=== PATIENT | female | born 1955 | race Caucasian/White ===

== ENCOUNTER 2019-03-07 05:14 | Emergency (ER) | payer MEDICARE, BC ==
[2019-03-07] MEDS: diphenhydrAMINE 25 MG Cap ONE (05:39)
[2019-03-07 05:44] VITALS: BP 142/66; PULSE 58
[2019-03-07] MEDS ORDERED: Ketorolac 60 MG/2 ML SDV ONE (05:46)
--- NOTE | 2019-03-07 05:54 | EDM.PDOC ---
ED HPI GENERAL MEDICAL PROBLEM - General Chief Complaint: General Stated Complaint: right knee pain Time Seen by Provider: 03/07/19 05:54 Source of Information: Reports: Patient History Limitations: Reports: No Limitations - History of Present Illness INITIAL COMMENTS - FREE TEXT/NARRATIVE: Gloria is a 63 year old female who presents to the ED via private vehicle with c/o right knee pain and swelling. She is 2 days status post right TKA. She reports she is nauseated, itching all over, and shaky. She reports she last took her oxycodone at 1 am. She reports she was doing well at the hospital and on the ride home her pain worsened. She reports swelling in both extremities. Reports she is struggling to lift her knee now. She feels like she is "swollen all over." Denies any chest pain or shortness of breath. 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, Other Medication(s) (oxycodone) Right Knee Pain Score (Numeric/FACES): 10 - Related Data Allergies Allergy/AdvReac Type Severity Reaction Status Date / Time budesonide [From Pulmicort] Allergy Cannot Verified 03/07/19 05:51 Remember diltiazem HCl [From Cardizem] Allergy Cannot Verified 03/07/19 05:51 Remember docetaxel [From Taxotere] Allergy Cannot Verified 03/07/19 05:51 Remember erythromycin base Allergy Cannot Verified 03/07/19 05:51 Remember fluticasone propionate Allergy Cannot Verified 03/07/19 05:51 [From Advair Diskus] Remember formaldehyde Allergy Cannot Verified 03/07/19 05:51 Remember ibuprofen [From Motrin] Allergy Cannot Verified 03/07/19 05:51 Remember metoprolol Allergy Cannot Verified 03/07/19 05:51 Remember niacin Allergy Cannot Verified 03/07/19 05:51 Remember oxaprozin [From Daypro] Allergy Cannot Verified 03/07/19 05:51 Remember prednisolone Allergy Cannot Verified 03/07/19 05:51 Remember pregabalin [From Lyrica] Allergy Cannot Verified 03/07/19 05:51 Remember salmeterol xinafoate Allergy Cannot Verified 03/07/19 05:51 [From Advair Diskus] Remember sulfamethoxazole Allergy Cannot Verified 03/07/19 05:51 [From Bactrim] Remember trimethoprim [From Bactrim] Allergy Cannot Verified 03/07/19 05:51 Remember wheat Allergy Cannot Verified 03/07/19 05:51 Remember EGGS Allergy Cannot Uncoded 03/07/19 05:51 Remember SURGICAL TAPE Allergy Cannot Uncoded 03/07/19 05:51 Remember Home Meds: Home Meds Aspirin [Halfprin] 81 mg PO DAILY 02/12/15 [History] Atenolol [Tenormin] 25 mg PO BID 02/12/15 [History] Furosemide 40 mg PO DAILY 02/12/15 [History] Potassium Chloride 10 meq PO DAILY 02/12/15 [History] Acetaminophen 325 mg PO QID 03/07/19 [History] Acetaminophen/HYDROcodone [Glenwood 325-5 MG] 1 - 2 tab PO Q4H PRN #30 tablet 03/07 [Rx] Albuterol Sulfate [Proair Hfa] 2 inhaler IH ASDIRECTED PRN 03/07/19 [History] Apixaban [Eliquis] 2.5 mg PO BID 03/07/19 [History] Fluticasone/Vilanterol [Breo Ellipta 200-25 MCG Inhalation Kit] 1 each IH DAILY 03/07/19 [History] Iron Polysaccharides Complex [Ferrex 150] 150 mg PO DAILY 03/07/19 [History] Lactobacillus Acidophilus [Acidophilus] 1 each PO DAILY 03/07/19 [History] Magnesium Glycinate [Mag Glycinate] 100 mg PO BID 03/07/19 [History] Neomycin Burnham/Bacitrac Zn/Poly [Medi-First Triple Antibiotic] 1 each TP ASDIRECTED 03/07/19 [History] Polyethylene Glycol [Polyox Wsr-301] 1 gm MC DAILY 03/07/19 [History] Sennosides/Docusate Sodium [Senna-Docusate Sodium Tablet] 1 each PO BID PRN [History] oxyCODONE 5 mg PO QID 03/07/19 [History] Past Medical History - Past Health History Medical/Surgical History: Denies Medical/Surgical History HEENT History: Reports: None Cardiovascular History: Reports: Hypertension Respiratory History: Reports: Asthma, Interstitial Lung Disease, Pneumonia, Recurrent, Other (See Below) Gastrointestinal History: Reports: None, Cholelithiasis Genitourinary History: Reports: None Other Genitourinary History: Bladder repair Musculoskeletal History: Reports: Arthritis, Osteoarthritis Neurological History: Reports: None Endocrine/Metabolic History: Reports: Obesity/BMI 30+ Hematologic History: Reports: None Oncologic (Cancer) History: Reports: Breast - Past Surgical History Respiratory Surgical History: Reports: Thoracotomy Social & Family History - Family History Family Medical History: Noncontributory - Caffeine Use Caffeine Use: Reports: None - Living Situation & Occupation Living situation: Reports: Occupation: Employed ED ROS GENERAL - Review of Systems Review Of Systems: ROS reveals no pertinent complaints other than HPI. ED EXAM, GENERAL - Physical Exam Exam: See Below Exam Limited By: No Limitations General Appearance: Alert, WD/WN, No Apparent Distress Respiratory/Chest: No Respiratory Distress, Lungs Clear, Normal Breath Sounds, No Accessory Muscle Use, Chest Non-Tender Cardiovascular: Normal Peripheral Pulses, Regular Rate, Rhythm, No Edema, No Gallop, No JVD, No Murmur, No Rub Peripheral Pulses: 2+: Posterior Tibial (L), Posterior Tibial (R), Dorsalis Pedis (L), Dorsalis Pedis (R) GI/Abdominal: Normal Bowel Sounds, Soft, Non-Tender, No Organomegaly, No Distention, No Abnormal Bruit, No Mass Extremities: Normal Capillary Refill, Joint Swelling (right knee), Leg Pain, Limited Range of Motion (right knee, strength 2/5 to RLE), Other (right lower extremity wrapped with lenin wrap) Neurological: Alert, Oriented, No Motor/Sensory Deficits Skin Exam: Wound/Incision (incision to R knee covered with dressing, CDI) Course - Vital Signs Last Recorded V/S: Last Vital Signs Temp 97.4 F 03/07/19 05:37 Pulse 58 L 03/07/19 05:37 Resp 18 03/07/19 05:37 BP 142/66 H 03/07/19 05:37 Pulse Ox 96 03/07/19 05:37 - Orders/Labs/Meds Meds: Medications Discontinued Medications Generic Name Dose Route Start Last Admin Trade Name Rosa PRN Reason Stop Dose Admin Diphenhydramine HCl Confirm 03/07/19 05:20 03/07/19 05:39 Benadryl Administered 03/07/19 05:21 25 mg Dose Administration 25 mg .ROUTE .STK-MED ONE Ketorolac Tromethamine Confirm 03/07/19 05:46 Toradol Administered 03/07/19 05:47 Dose 60 mg .ROUTE .STK-MED ONE Ketorolac Tromethamine 30 mg 03/07/19 06:10 03/07/19 06:20 Toradol IVPUSH 03/07/19 06:11 30 mg ONETIME ONE Administration Ondansetron HCl Confirm 03/07/19 05:50 03/07/19 06:20 Zofran Administered 03/07/19 05:51 4 mg Dose Administration 4 mg .ROUTE .STK-MED ONE - Re-Assessments/Exams Free Text/Narrative Re-Assessment/Exam: 03/07/19 08:03 Patient reports significant improvement in her pain and nausea. She feels less swollen and is able to move her knee more. Itching has resolved. She feels less swollen. Departure - Departure Time of Disposition: 08:03 Disposition: Home, Self-Care 01 Condition: Good Clinical Impression: Status post total knee replacement, right, Postoperative pain of knee - Discharge Information *PRESCRIPTION DRUG MONITORING PROGRAM REVIEWED*: No *COPY OF PRESCRIPTION DRUG MONITORING REPORT IN PATIENT PITA: No Prescriptions: Acetaminophen/HYDROcodone [Glenwood 325-5 MG] 1 - 2 tab PO Q4H PRN #30 tablet PRN Reason: Pain Instructions: Knee Pain, Adult, [id number] Referrals: Juan Ramon Mosqueda MD [Primary Care Provider] - Forms: ED Department Discharge Additional Instructions: - Stop oxycodone - Start [place]wood (hydrocodone-acetaminophen) 1-2 tablets every 4 hours as needed - May use Benadryl as needed for itching - Continue to ice and elevate knee as much as possible - PT as directed - Continue all other post op recommendations per surgeon - Follow up with PCP as needed - Follow up with surgeon as scheduled - Problem List & Annotations (1) Postoperative pain of knee SNOMED Code(s): 61139932 Code(s): G89.18 - OTHER ACUTE POSTPROCEDURAL PAIN; M25.569 - PAIN IN UNSPECIFIED KNEE Status: Acute (2) Status post total knee replacement, right SNOMED Code(s): 1880463908729, 1706667421008 Code(s): Z96.651 - PRESENCE OF RIGHT ARTIFICIAL KNEE JOINT Status: Acute (3) Side effect of medication SNOMED Code(s): 655929556 Code(s): T88.7XXA - UNSP ADVERSE EFFECT OF DRUG OR MEDICAMENT, INIT ENCNTR Status: Acute - Assessment/Plan Plan: Patient was given 30 mg IV toradol, 4 mg Zofran, and 25 mg Benadryl. She was monitored in ED following this. She did have resolution of her nausea and itching. Also reported significant improvement in her pain. She had improvement in her right knee ROM. Was able to lift RLE at time of discharge. She was advised to refrain from oxycodone use. Switch to Glenwood to see if patient better tolerates this. She is advised to continue recommendations per her surgeon and follow up as needed. She was discharged from facility in satisfactory condition.
[2019-03-07] MEDS: Ondansetron 4 MG/2 ML SDV ONE (06:20)
[2019-03-07] MEDS: Ketorolac 30 MG/ML SDV IVPUSH ONE (06:20)
--- OUTSIDE RECORDS SUMMARY | 2019-03-07 07:33 | XMSREPORT ---
:1955 Author Organization [facility] Address [facility] [place] [address] Care Team Providers Name Role Phone Page, Juan Ramon Caba MD Primary Care Provider Zahra Saucedo PA-C Attributed Provider Reason for Visit Auth/Cert (Routine) Status Reason Specialty Diagnoses / Referred By Referred To Procedures Contact Contact Continuity of Orthopedics Diagnoses Unilateral primary osteoarthritis, right knee Marylin, Care Procedures ARTHROPLASTY KNEE CONDYLE & PLATEAU MEDIAL & LAT COMPARTMENTS WWO TIFFANY Eckert MD [address] [place] [address] Encounter Details Date Type Department Care Team Description 03/05/2019 - Hospital Encounter [facility] Marylin, Arthritis of right 03/06/[address] MD Babar knee [address] [place] [address] [place] [address] [place], [place] [phone] [address] [phone] Allergies Active Allergy Reactions Severity Noted Date Comments Fluticasone-Salmeterol Rash, Cough High Na Other (Specify in High Makes her very Benzoate-Sulfamethoxazol Comments) nervous e-Trimethoprim Cardizem Other (Specify in High Legs fill with Comments) fluid/blood pools Oxaprozin Other (Specify in High 11/18/2016 GI upset, rectal Comments) bleeding Weight gain Erythromycin Other (Specify in High Stomach Bleeds Comments), Rash Formaldehyde Other (Specify in Medium 11/18/2016 Really sleepy Comments) Sleepiness Levofloxacin Other (Specify in 02/27/2019 Severe muscle issues Comments) Lyrica Other (Specify in High Severe muscle cramps Comments) Metoprolol Other (Specify in High 11/18/2016 "makes me feel like Comments) i'm pulling a tractor" Feels like pulling a tractor, slows way down from med. Advil Cold-Sinus Dizziness Low [place] Blue Fcf (Fd&C Rash High Blue #1)-Niacin Prednisone Other (Specify in High Only 5 mg tablets, Comments), Rash cough, can't move Only the 5 mg tab causes problems. Severe bloating, sever cough. Budesonide, Inhalation Other (Specify in High Cough Comments) Adhesives Rash High Blisters documented as of this encounter (statuses as of 03/06/2019) Medications Medication Sig Dispensed Refills Start End Date Status Date aspirin 81 MG Take 81 mg by 0 Active tablet mouth 1 time per day. CPAP/BiPAP therapy 0 Active Lactobacillus Take 1-2 tablets 0 Active (ACIDOPHILUS PO) by mouth 1 time per day atenolol Take 1 tablet 180 tablet 4 Active (TENORMIN) 25 mg (25 mg) by mouth 9 tabletIndications: 2 times a day Atrial fibrillation, unspecified type (HCC) potassium chloride Take 10-20 mEq 0 Active (KLOR-CON M20) 20 by mouth 1 time MEQ CR tablet per day Takes 10meq daily unless taking furosemide, then takes 20meq daily. fluticasone-vilant Inhale 1 puff 0 Active rajesh (BREO orally 1 time ELLIPTA) 200-25 per day mcg/puff inhaler Magnesium Take by mouth Takes 1 capsule every morning and 2 capsules every evening. 0 Active Bisglycinate (MAG (Magnesium glycinate 120mg) GLYCINATE PO) neomycin-bacitraci Apply 1 0 Active n-polymixin application (NEOSPORIN) topically as 5-400-5000 OINT needed for other (Specify) (skin scrapes to prevent infectino) furosemide (LASIX) Take 1 tablet 0 Active 40 mg (40 mg) by mouth 9 tabletIndications: 1 time a day as Edema, unspecified needed (leg type swelling) albuterol HFA Inhale 2 puffs 0 Active (PROAIR HFA) 108 orally every 4 9 (90 Base) MCG/ACT to 6 hours as inhalerIndications needed for : Sarcoidosis, shortness of Reactive airway breath or disease that is wheezing FOR not asthma SHORTNESS OF BREATH OR WHEEZING. SHAKE WELL BEFORE USING acetaminophen Take 2 tablets 60 tablet 0 Active (TYLENOL) 325 mg (650 mg) by 9 tabletIndications: mouth Every 4 Status post total hours as needed right knee for mild pain replacement apixaban (ELIQUIS) Take 1 tablet 23 tablet 0 Active 2.5 MG (2.5 mg) by 9 tabletIndications: mouth 2 times a Prophylaxis of DVT day Indications: in Orthopedic Prophylaxis of Surgery Deep Vein Thrombosis in Orthopedic Surgery oxyCODONE (OXY-IR) Take 1 to 2 40 tablet 0 Active 5 mg tablet tablets (5-10 9 (immediate mg) by mouth release)Indication Every 4 hours as s: Status post needed for total right knee moderate to replacement severe pain (1 tablet for moderate pain, 2 tablets for severe pain) senna-docusate Take 1 tablet by 30 tablet 0 Active sodium mouth 2 times a 9 (SENOKOT-S;PERICOL day as needed FRANCINE) 8.6-50 MG for constipation tabletIndications: Status post total right knee replacement polyethylene Take 3 1 Bottle 0 Active glycol (MIRALAX) teaspoonsful (17 9 powderIndications: g) by mouth 1 Status post total time a day as right knee needed for replacement constipation iron Take 1 capsule 30 capsule 0 Active polysaccharide (150 mg) by 9 complex (FERREX mouth 1 time a 150) 150 MG day with CAPSIndications: breakfast Status post total right knee replacement, Acute blood loss anemia ECHINACEA PO Take by mouth 0 03/06/20 Discontinued as needed. 19 (Stop Taking at Discharge) MAGNESIUM PO Take 2 tablets 0 03/05/20 Discontinued by mouth 2 times 19 (order entry technician a day error) miscellaneous Take 1 tablet by 0 02/28/20 Discontinued medication MISC mouth 1 time per 19 (order entry technician day Vitamin F error) metFORMIN Take 500 mg by 0 02/28/20 Discontinued (GLUCOPHAGE) 500 mouth 1 time per 19 (order entry technician MG tablet day Not error) currently taking PROAIR HFA 108 (90 INHALE 2 PUFFS 3 Inhaler 1 03/06/20 Discontinued Base) MCG/ACT ORALLY EVERY 4 8 19 (Reorder) inhalerIndications TO 6 HOURS : Sarcoidosis, NEEDED FOR Reactive airway SHORTNESS OF disease that is BREATH OR not asthma WHEEZING SHAKE WELL BEFORE USING. BREO ELLIPTA INHALE 1 PUFF 180 each 0 03/05/20 Discontinued 100-25 MCG/INH ORALLY 1 TIME 9 (order entry technician inhalerIndications PER DAY RINSE error) : Sarcoidosis MOUTH AFTER USE. potassium chloride Take 1 tablet 90 tablet 4 02/28/20 Discontinued (KLOR-CON M20) 20 (20 mEq) by 9 (order entry technician MEQ CR mouth 1 time per error) tabletIndications: day Edema, unspecified type furosemide (LASIX) Take 1 tablet 90 tablet 3 03/06/20 Discontinued 40 mg (40 mg) by mouth 02 07 (Reorder) tabletIndications: 1 time per day Edema, unspecified type Homeopathic Take 1 tablet by 0 03/06/20 Discontinued Products (LEG mouth as needed 19 (Stop Taking at CRAMP RELIEF PO) (leg cramps) Discharge) documented as of this encounter (statuses as of 03/06/2019) Active Problems Problem Noted Date JOAO on CPAP 01/18/2018 Reactive airway disease that is not asthma 01/18/2018 Coronary artery disease involving ruby coronary artery of ruby heart 01/12 without angina pectoris Female cystocele 11/07/2017 Overview: Minimal to 1 degree Rectocele 11/07/2017 Right knee pain 02/26/2015 Multinodular goiter 06/19/2014 Obstructive sleep apnea 06/05/2012 Overview: Cpap 9 cmh20. AHI 11.4. Infiltrating ductal carcinoma of breast 08/25/2010 Overview: Left breast Sarcoidosis 04/17/2006 Asthma Hyperlipidemia Atrial fibrillation Overview: Hx of Depression Obesity Thyroid nodule Reactive airway disease Irritable bowel syndrome documented as of this encounter (statuses as of 03/06/2019) Resolved Problems Problem Noted Date Resolved Date Acute perforated appendicitis 10/07/2014 02/24/2015 Postmenopausal bleeding 02/08/2012 02/24/2015 documented as of this encounter (statuses as of 03/06/2019) Immunizations Name Administration Dates Next Due FLU VACCINE HIGH DOSE 65YR+(Fluzone) 03/05/2019 Influenza Vaccine 06/05/2012 documented as of this encounter Social History Tobacco Use Types Packs/Day Years Used Date Passive Smoke Exposure - Never Smoker 48 Smokeless Tobacco: Never Used Alcohol Use Drinks/Week oz/Week Comments Yes Alcohol Habits Answer Date Recorded How often do you have a drink containing alcohol? Monthly or less 04/09/2018 How many drinks containing alcohol do you have on a 1 or 2 04/09/2018 typical day when you are drinking? How often do you have six or more drinks on one Never 04/09/2018 occasion? Sexually Active Control Partners Comments Yes Post-menopausal Male Sex Assigned at Date Recorded Not on file Job Start Date Occupation Industry Not on file Not on file Not on file Travel History Travel Start Travel End No recent travel history available. documented as of this encounter Last Filed Vital Signs Vital Sign Reading Time Taken Comments Blood Pressure 120/58 03/06/2019 12:11 PM CDT Pulse 63 03/06/2019 12:11 PM CDT Temperature 36.5 C (97.7 F) 03/06/2019 12:11 PM CDT Respiratory Rate 16 03/06/2019 12:11 PM CDT Oxygen Saturation 96% 03/06/2019 12:11 PM CDT Inhaled Oxygen Concentration - - Weight 108.4 kg (239 lb) 03/05/2019 6:24 AM CDT Height 165.1 cm (5' 5") 02/27/2019 2:33 PM CDT Body Mass Index 39.77 02/27/2019 2:33 PM CDT documented in this encounter Functional Status Functional Status Response Date of Assessment Is the person deaf or does he/she have serious difficulty No 02/27/2019 hearing? Is this person blind or does he/she have difficulty No 02/27/2019 seeing even when wearing glasses? Do you have difficulty with walking, balance, climbing No 02/27/2019 stairs, or had a fall in the last 3 months? Does the patient have difficulty dressing or bathing? No 02/27/2019 Because of a physical, mental, or emotional condition; No 02/27/2019 does this person have difficulty doing errands alone such as visiting a doctor's office or shopping? Cognitive Status Response Date of Assessment Because of a physical, mental, or emotional condition; No 02/27/2019 does this person have serious difficulty concentrating, remembering, or making decisions? documented as of this encounter Discharge Summaries Not on filedocumented in this encounter Medications at Time of Discharge Medication Sig Dispensed Refills Start Date End Date furosemide (LASIX) 40 mg Take 1 tablet (40 mg) 0 03/06/2019 tabletIndications: by mouth 1 time a day Edema, unspecified type as needed (leg swelling) albuterol HFA (PROAIR Inhale 2 puffs orally 0 03/06/2019 HFA) 108 (90 Base) every 4 to 6 hours as MCG/ACT needed for shortness inhalerIndications: of breath or wheezing Sarcoidosis, Reactive FOR SHORTNESS OF airway disease that is BREATH OR WHEEZING. not asthma SHAKE WELL BEFORE USING acetaminophen (TYLENOL) Take 2 tablets (650 60 tablet 0 03/06/2019 325 mg mg) by mouth Every 4 tabletIndications: hours as needed for Status post total right mild pain knee replacement apixaban (ELIQUIS) 2.5 Take 1 tablet (2.5 mg) 23 tablet 0 03/06/2019 MG tabletIndications: by mouth 2 times a day Prophylaxis of DVT in Indications: Orthopedic Surgery Prophylaxis of Deep Vein Thrombosis in Orthopedic Surgery oxyCODONE (OXY-IR) 5 mg Take 1 to 2 tablets 40 tablet 0 03/06/2019 tablet (immediate (5-10 mg) by mouth release)Indications: Every 4 hours as Status post total right needed for moderate to knee replacement severe pain (1 tablet for moderate pain, 2 tablets for severe pain) senna-docusate sodium Take 1 tablet by mouth 30 tablet 0 03/06/2019 (SENOKOT-S;PERICOLACE) 2 times a day as 8.6-50 MG needed for tabletIndications: constipation Status post total right knee replacement fluticasone-vilanterol Inhale 1 puff orally 1 0 (BREO ELLIPTA) 200-25 time per day mcg/puff inhaler Magnesium Bisglycinate Take by mouth Takes 1 capsule every morning and 2 capsules every evening. 0 (MAG GLYCINATE PO) (Magnesium glycinate 120mg) [id number] Apply 1 application 0 mixin (NEOSPORIN) topically as needed 5-400-5000 OINT for other (Specify) (skin scrapes to prevent infectino) potassium chloride Take 10-20 mEq by 0 (KLOR-CON M20) 20 MEQ CR mouth 1 time per day tablet Takes 10meq daily unless taking furosemide, then takes 20meq daily. atenolol (TENORMIN) 25 Take 1 tablet (25 mg) 180 tablet 4 01/04/2019 mg tabletIndications: by mouth 2 times a day Atrial fibrillation, unspecified type (HCC) aspirin 81 MG tablet Take 81 mg by mouth 1 0 time per day. CPAP/BiPAP therapy 0 Lactobacillus Take 1-2 tablets by 0 (ACIDOPHILUS PO) mouth 1 time per day polyethylene glycol Take 3 teaspoonsful 1 Bottle 0 03/06/2019 (MIRALAX) (17 g) by mouth 1 time powderIndications: a day as needed for Status post total right constipation knee replacement iron polysaccharide Take 1 capsule (150 30 capsule 0 03/06/2019 complex (FERREX 150) 150 mg) by mouth 1 time a MG CAPSIndications: day with breakfast Status post total right knee replacement, Acute blood loss anemia documented as of this encounter Progress Notes Mikhail De Leon PA - 03/06/2019 9:07 AM CDT Ortho Progress Note Ana Paula Benson is a 63yr female here for 1 Day Post-Op, Procedure(s): RIGHT KNEE TOTAL ARTHROPLASTY. Patient of BP 117/66 | Pulse 54 | Temp 97.7 F (36.5 C) | Resp 16 | Ht 1.651 m (5' 5 ") | Wt 108.4 kg (239 lb) | SpO2 100% | BMI 39.77 kg/m Maximum Temperatures (last 24 hours) Temperature Maximum Max Temp 98 F (36.7 C) { Lab Results Component Value Date HEMOGLOBIN 9.4 (L) 03/06/2019 Patient doing ok, complains of mild pain. The patient denies nausea. The wound has No drainage. Compartments soft and non-tender. Distal NV intact. Doing well with Physical Therapy today. Continue care plan. 9: 10 AM Faby Staley RPh - 03/05/2019 7:25 AM CDT 03/05/2019 07:25 Patient was seen by pharmacy for medication reconciliation. Home medications have been reconciled and updated on the home medications list to match the patient's home usage. Medications Added: triple antibiotic ointment Other information: changed Breo Ellipta from 100/25 to 200/25. Prior to Admission Medications Prescriptions Last Dose Informant Patient Reported? Taking? CPAP/BiPAP therapy Self Yes Yes ECHINACEA PO 1 year ago Self Yes Yes Sig: Take by mouth as needed. Homeopathic Products (LEG CRAMP RELIEF PO) 03/03/2019 at hs Self Yes Yes Sig: Take 1 tablet by mouth as needed (leg cramps) Lactobacillus (ACIDOPHILUS PO) 03/03/2019 Self Yes Yes Sig: Take 1-2 tablets by mouth 1 time per day Magnesium Bisglycinate (MAG GLYCINATE PO) 03/03/2019 at hs Self Yes Yes Sig: Take by mouth Takes 1 capsule every morning and 2 capsules every evening. (Magnesium glycinate 120mg) PROAIR HFA 108 (90 Base) MCG/ACT inhaler Past month at Unknown time Self No Yes Sig: INHALE 2 PUFFS ORALLY EVERY 4 TO 6 HOURS NEEDED FOR SHORTNESS OF BREATH OR WHEEZING SHAKE WELL BEFORE USING. Patient taking differently: Inhale 2 puffs orally every 4 to 6 hours as needed for shortness of breath or wheezing aspirin 81 MG tablet 02/19/2019 Self Yes Yes Sig: Take 81 mg by mouth 1 time per day. atenolol (TENORMIN) 25 mg tablet 03/05/2019 at 0330 Self No Yes Sig: Take 1 tablet (25 mg) by mouth 2 times a day fluticasone-vilanterol (BREO ELLIPTA) 200-25 mcg/puff inhaler 03/05/2019 at 0330 Self Yes Yes Sig: Inhale 1 puff orally 1 time per day furosemide (LASIX) 40 mg tablet 03/04/2019 at am Self No Yes Sig: Take 1 tablet (40 mg) by mouth 1 time per day Patient taking differently: Take 40 mg by mouth 1 time a day as needed (leg swelling) mogmbgth-gjnvmjmymv-qaqdbltjr (NEOSPORIN) 5-400-5000 OINT Past Week at Unknown time Self Yes Yes Sig: Apply 1 application topically as needed for other (Specify) (skin scrapes to prevent infectino) potassium chloride (KLOR-CON M20) 20 MEQ CR tablet 03/04/2019 at am Self Yes Yes Sig: Take 10-20 mEq by mouth 1 time per day Takes 10meq daily unless taking furosemide, then takes 20meq daily. Facility-Administered Medications: None Faby Jarvis RPh documented in this encounter Plan of Treatment Date Type Specialty Care Team Description 03/12/2019 Appointment Radiology Pepe Zamorano MD [address] [place] [address] [phone] 03/18/2019 Office Visit Orthopedics Mikhail De Leon PA [address] [place] [address] 03/20/2019 Office Visit Endocrinology Rafael Cantu MD [address] [place] [address] [phone] 03/22/2019 Orders Only Laboratory 03/22/2019 Appointment Radiology Virginia Conklin Om, MD [address] [place] [address] [phone] 03/22/2019 Appointment Pulmonary Virginia Conklin Om, MD [address] [place] [address] [phone] 03/22/2019 Office Visit Pulmonary Karel Samano, [employer]AF[employer]Y TE[employer]ICATION[employer] ENGINE[employer] [address] [place] [address] [phone] 04/02/2019 Office Visit Orthopedics Babar Coulter MD [address] [place] [address] [phone] 10/22/2019 Orders Only Laboratory 10/22/2019 Office Visit Oncology Pepe Zamorano MD [address] [place] [address] [phone] Name Type Priority Associated Diagnoses Order Schedule HEMOGLOBIN Lab Routine Status post total right knee Expected: 03/13/2019 replacement (Approximate), Expires: Acute blood loss anemia 04/05/2020 documented as of this encounter Implants Implanted Type Area Director [employer]er [employer] Device Shelf Model / Identifier Expiration Serial / Date Lot Knee Base Attune Cmnt Fix Sz5 N 150 Ea - /A Total Jt Right: [employer] 09/19/2027 150 / Implanted: Qty: 1 on 03/05/2019 by Babar Coulter MD at [facility] Knee KNEE N/A / [id number] Description:Verbally ordered and verified by Dr. Coulter Knee Cr Fem Attune Deven Rt Sz6n N 150 Ea - Sn/A Total Jt Knee Right: KNEE [employer] 10/19/2028 150 / Implanted: Qty: 1 on 03/05/2019 by Babar Coulter MD at [facility] N/A / [id number] Description:Verbally ordered and verified by Dr. Coulter Knee Tib Insrt Attune [id number] N Ea - Sn/A Total Jt Knee Right: KNEE [employer] 11/19/2023 151 / Implanted: Qty: 1 on 03/05/2019 by Babar Coulter MD at [facility] N/A / [id number] Description:Verbally ordered and verified by Dr. Coulter Knee Ptla Attune Dome [id number] N 151 Ea - /A Total Jt Right: PATELLA [employer], 02/18/2021 1518 / Implanted: Qty: 1 on 03/05/2019 by Babar Coulter MD at [facility] Knee INC N/A / [id number] Description:Verbally ordered and verified by Dr. Marylin Mendez Bone Simplex P Stry N [id number] Bx10/Ea - Sn/A Right: KNEE ALICIA 09/18/2020 [id number] / Implanted: Qty: 1 on 03/05/2019 by Babar Coulter MD at [facility] N/A / [id number] Description:Verbally ordered and verified by Dr. Marylin documented as of this encounter Procedures Procedure Name Priority Date/Time Associated Comments Diagnosis HEMOGLOBIN Routine 03/06/2019 5:33 Results for this AM CDT procedure are in the results section. BASIC METABOLIC PANEL Routine 03/06/2019 5:33 Results for this AM CDT procedure are in the results section. XRAY KNEE 1-2 VIEWS Routine 03/05/2019 10:22 Results for this RT AM CDT procedure are in the results section. TISSUE EXAM Routine 03/05/2019 9:21 Arthritis of right Results for this AM CDT knee procedure are in the results section. ARTHROPLASTY KNEE 03/05/2019 8:13 Arthritis of right AM CDT knee Special Needs *X* requests early case POTASSIUM STAT 03/05/2019 6:19 AM CDT documented in this encounter Results BASIC METABOLIC PANEL (03/06/2019 5:33 AM CDT) Glucose 141 (H) 70 - 100 mg/dL [facility] BUN 16 6 - 22 mg/dL [facility] Creatinine 0.76 0.60 - 1.10 [facility] mg/dL [place] BUN/Creatinine Ratio 21.1 10.0 - 25.0 [facility] Sodium 141 135 - 145 meq/L [facility] Potassium 4.4 3.5 - 5.3 meq/L [facility] Chloride 110 99 - 110 meq/L [facility] CO2 21 20 - 29 meq/L [facility] Anion Gap with K 14 6 - 20 meq/L [facility] Calcium 8.5 8.5 - 10.5 [facility] mg/dL [place] Age 63 Years [facility] eGFR Non- 76 >=60 [facility] Central African mL/min/1.73m2 [place] eGFR >90 >=60 [facility] mL/min/1.73m2 [place] Specimen Blood Performing Organization Address City/[facility]/Zipcode Phone Number [facility] [address] [place] [address] HEMOGLOBIN (03/06/2019 5:33 AM CDT) Hemoglobin 9.4 (L) 11.5 - 15.8 g/dL [facility] Specimen Blood Performing Organization Address City/[facility]/Zipcode Phone Number [facility] [address] [place] [address] XRAY KNEE 1-2V - RT (03/05/2019 10:22 AM CDT) Specimen Narrative Performed At [facility] Patient Name: ANA PAULA BENSON Date of :1955 Procedure: XRAY KNEE 1-2 VIEWS RT Date of Service: 03/05/2019 EXAM: XRAY KNEE 1-2 VIEWS RT INDICATION: Post op TKA. COMPARISON(S): 02/12/2019. FINDINGS: The patient is postop right total knee arthroplasty. Components appear well seated in anatomic alignment. There is no acute fracture or dislocation. There are postoperative changes within the surrounding soft tissues. There are vertical skin eliza noted. IMPRESSION: 1.Postop right total knee arthroplasty. Finalized by: Jesus Brennan MD on 03/05/2019 12:10 PM CDT Patient/Procedure Information: [facility] MRN/KALEE: [id number] Order Number: [id number] Accession Number: [id number] Ordering Provider: MIKHAIL DE LEON Authorizing Provider: MIKHAIL DE LEON Procedure Note Interface, Radiantres - 03/05/2019 12:12 PM CDT Patient Name: ANA PAULA BENSON Date of : 1955 Procedure: XRAY KNEE 1-2 VIEWS RT Date of Service: 03/05/2019 EXAM: XRAY KNEE 1-2 VIEWS RT INDICATION: Post op TKA. COMPARISON(S): 02/12/2019. FINDINGS: The patient is postop right total knee arthroplasty. Components appear well seated in anatomic alignment. There is no acute fracture or dislocation. There are postoperative changes within the surrounding soft tissues. There are vertical skin eliza noted. IMPRESSION: 1. Postop right total knee arthroplasty. Finalized by: Jesus Brennan MD on 03/05/2019 12:10 PM CDT Patient/Procedure Information: [facility] MRN/KALEE: [id number] Order Number: [id number] Accession Number: [id number] Ordering Provider: MIKHAIL DE LEON Authorizing Provider: MIKHAIL DE LEON Performing Organization Address City/State/Zipcode Phone Number [id number] TISSUE EXAM (03/05/2019 9:21 AM CDT) FINAL DIAGNOSIS Bone and soft tissue, right knee, arthroplasty: [facility] Electronically signed - Bone fragments with changes grossly consistent with degenerative joint disease, and soft tissue fragments without gross pathological abnormality ( gross examination only; see gross description). CLINIC by Dee Thomas MD on FSH:ao 03/06/2019 at 11:37 AM GROSS DESCRIPTION Received in formalin labeled "right knee bone and tissue" is a 15.7 x 14.7 x 1.7 cm aggregate of multiple yellow-ackerman bone and soft tissue fragments, including the tibial plateau and femoral condyles. T [facility] he patella is present. The articular surfaces show areas of eburnation and osteophyte formation. No sections submitted. Gross examination only. CLINIC MS MICROSCOPIC [facility] DESCRIPTION CLINIC CASE REPORT Surgical Pathology Report Case: [id number] [facility] Authorizing Provider:Babar Coulter MD Collected: 03/05/2019 0921 CLINIC Ordering Location: [facility] Received: 03/05/2019 1216 Pathologist: Dee Thomas MD Specimen:Knee, Right knee bone and tissue EMBEDDED IMAGES [facility] Specimen Bone Performing Organization Address City/State/Zipcode Phone Number [facility] [address] [place] [address] POTASSIUM (03/05/2019 6:19 AM CDT) Potassium 4.3 3.5 - 5.3 meq/L [facility] Specimen Blood Performing Organization Address City/State/Zipcode Phone Number [facility] [address] [place] [address] documented in this encounter Visit Diagnoses Diagnosis Status post total right knee replacement - Primary Arthritis of right knee Unspecified arthropathy, lower leg Edema, unspecified type Sarcoidosis Reactive airway disease that is not asthma Acute blood loss anemia Acute posthemorrhagic anemia documented in this encounter Discharge Diagnoses Not on filedocumented in this encounter Administered Medications Medication Order MAR Action Action Date Dose Rate Site acetaminophen (TYLENOL) tablet Given 03/06/2019 12:48 PM CDT 650 mg 650 mg 650 mg, Oral, Every six hours, First dose on Mon03/05/19 at 1800, Until Discontinued, Post - Op, Alternate with tramadol (ULTRAM); Total dose of acetaminophen from all acetaminophen containing products should not exceed 4 grams (4000 mg) per day., Given 03/06/2019 5:39 AM CDT 650 mg Given 03/06/2019 12:50 AM CDT 650 mg albuterol HFA (PROVENTIL,PROAIR,VENTOLIN) 108 (90 Base) MCG/ACT inhaler 2 puff 2 puff, Inhalation, Every four hours prn, Starting Mon03/05/19 at 1549, Until Discontinued, shortness of breath, wheezing, Shake Well., apixaban (ELIQUIS) tablet 2.5 mg Given 03/06/2019 8:43 AM CDT 2.5 mg 2.5 mg, Oral, Two times a day, 24 doses, First dose on Mon03/06/19 at 0800, Last dose on Mon03/17/19 at 2000, Post - Op aspirin enteric coated tablet 81 mg Given 03/06/2019 8:42 AM CDT 81 mg 81 mg, Oral, DAILY, First dose on Mon03/06/19 at 0900, Until Discontinued fluticasone-vilanterol (BREO ELLIPTA) 200-25 Given 03/06/2019 6:08 AM CDT 1 puff mcg/puff inhaler 1 puff 1 puff, Inhalation, DAILY, First dose on Mon03/06/19 at 0700, Until Discontinued, Rinse mouth after use., metoclopramide (REGLAN) inj soln 5 mg Given 03/05/2019 8:10 PM CDT 5 mg 5 mg, IV, Every six hours prn, Starting Mon03/05/19 at 1850, Until Discontinued, nausea, vomiting, 2 mL, If preference is to further dilute for IV administration: First draw up patient-specific dose, then dilute to 10 mL with 0.9% sodium chloride., ondansetron (ZOFRAN) injection solution 4 mg Given 03/05/2019 5:05 PM CDT 4 mg 4 mg, IV, Every four hours prn, Starting Mon03/05/19 at 0957, Until Discontinued, nausea, vomiting, 2 mL, PACU - Continue Post-Op, If ineffective after 15 minutes use promethazine If preference is to further dilute for IV administration: First draw up patient-specific dose, then dilute to 10 mL with 0.9% sodium chloride., Given 03/05/2019 1:02 PM CDT 4 mg oxyCODONE (OXY-IR) tablet 5-10 mg Given 03/06/2019 4:44 PM CDT 10 mg 5-10 mg, Oral, Every four hours prn, Starting Mon03/05/19 at 1515, Until Discontinued, moderate pain, severe pain, Post - Op, For patients with moderate pain, pain rating of 4-6, give Oxycodone 5mg PO every 4 hours PRN. For patients with severe pain, pain rating of 7-10, give Oxycodone 10mg PO every 4 hours PRN., polyethylene glycol (MIRALAX) packet 1 Given 03/06/2019 8:43 AM CDT 1 packet packet 1 packet, Oral, Daily, First dose on Mon03/06/19 at 0900, Until Discontinued, Post - Op, Hold if 2 loose stools occur in the last 24 hours., potassium chloride (KLOR-CON M10) TBCR 10 mEq 10 mEq, Oral, DAILY, First dose on Mon03/06/19 at 0900, Until Discontinued, Tablet may be broken in half, but should not be crushed or chewed. Tablet may be dissolved in 4 oz of water., scopolamine Applied 03/05/2019 6:00 PM 1 patch Behind Left Ear (TRANSDERM-SCOP) patch 1 CDT Transdermal patch 1 patch, Transdermal, Every three days, First dose on Mon03/05/19 at 1605, Until Discontinued, Administer over 3 Days senna-docusate sodium Given 03/06/2019 8:43 AM CDT 1 tablet (SENOKOT-S;PERICOLACE) tablet 1 tablet 1 tablet, Oral, Two times a day, First dose on Mon03/05/19 at 2100, Until Discontinued, Post - Op, Hold if 2 loose stools occur in the last 24 hours., sodium chloride 0.9% flush (adult) 10 mL Given 03/06/2019 8:43 AM CDT 10 mL 10 mL, IV, Two times a day and prn, First dose on Mon03/05/19 at 2100, Until Discontinued, 10 mL, Post - Op, Flush IV line as scheduled and as often as necessary before and after meds., sodium chloride 0.9% IV solution New Bag 03/06/2019 1:12 AM CDT 100 mL/hr IV, at 100 mL/hr, Continuous, Starting Mon03/05/19 at 1520, Until Discontinued, 1,000 mL, Post - Op New Bag/Tubing 03/05/2019 4:13 PM CDT 100 mL/hr traMADol (ULTRAM) tablet 100 mg Given 03/06/2019 2:55 PM CDT 100 mg 100 mg, Oral, Every six hours, First dose on Mon03/05/19 at 1520, Until Discontinued, Post - Op, Alternate with acetaminophen (TYLENOL). Recommended maximum daily dose of vvxDPBkt=303 mg. Recommended maximum daily dose in patients greater than 75 years of hiv=131 mg, Given 03/06/2019 8:43 AM CDT 100 mg Given 03/06/2019 3:44 AM CDT 100 mg Medication Order MAR Action Action Date Dose Rate Site acetaminophen (TYLENOL) tablet Given 03/05/2019 6:34 AM CDT 1,000 mg 1,000 mg 1,000 mg, Oral, Pre-op, 1 dose, Mon03/05/19 at 0605, Pre - Op, Total dose of acetaminophen from all acetaminophen containing products should not exceed 4 grams (4000 mg) per day., albuterol HFA (PROVENTIL,PROAIR,VENTOLIN) Given 03/05/2019 12:50 PM CDT 1 puff 108 (90 Base) MCG/ACT inhaler 2 puff 2 puff, Inhalation, Every four hours prn, Starting Mon03/05/19 at 1339, Until Mon03/05/19 at 1508, shortness of breath, wheezing Given 03/05/2019 12:15 PM CDT 1 puff ceFAZolin (ANCEF) 2000 mg/20 mL sterile Given 03/06/2019 12:41 AM CDT 2,000 mg water IV syringe 2,000 mg, IV, Every eight hours, 2 doses, First dose on Mon03/05/19 at 1700, Last dose on Mon03/06/19 at 0100, 20 mL, PACU - Continue Post-Op, Administer as IV push over 4 minutes., Given 03/05/2019 5:05 PM CDT 2,000 mg fentaNYL 100 mcg/2 mL preservative free Given 03/05/2019 7:45 AM CDT 100 mcg injection solution 25-100 mcg 25-100 mcg, IV, Now, 1 dose, Mon03/05/19 at 0740, 2 mL, Pre - Op, Fentanyl 25-100 mcg q 5 min prn over the next 2 hours to a MAX of 300 mcg as needed for analgesia during procedure, fentaNYL 100 mcg/2 mL preservative free Given 03/05/2019 12:00 PM CDT 50 mcg injection solution 50 mcg 50 mcg, IV, Every five minutes prn, 6 doses, Starting Mon03/05/19 at 1028, Until Mon03/05/19 at 1457, pain, 2 mL, PACU, Give 50 mcg every 5 minutes for pain for a total of 300 mcg (6 doses), Given 03/05/2019 11:19 AM CDT 50 mcg Given 03/05/2019 10:34 AM CDT 50 mcg gabapentin (NEURONTIN) capsule 600 mg Given 03/05/2019 6:33 AM CDT 600 mg 600 mg, Oral, Pre-op, 1 dose, Mon03/05/19 at 0605, Pre - Op, 1 dose prior to surgery, influenza HIGH DOSE virus vaccine Given 03/05/2019 6:45 AM CDT 0.5 mL Left Arm split preservative free IM injection 0.5 mL 0.5 mL, Intramuscular, Now, 1 dose, Mon03/05/19 at 0610, 0.5 mL ketorolac (TORADOL) intravenous injection 15 Given 03/05/2019 8:29 PM CDT 15 mg mg 15 mg, IV, Every six hours prn, Starting Mon03/05/19 at 1555, Until Mon03/06/19 at 1554, severe pain, 1 mL, Post - Op, If pain unrelieved by fentanyl; Max prn dose=60 mg/day If preference is to further dilute for IV administration: First draw up patient-specific dose, then dilute to 10 mL with 0.9% sodium chloride., lactated ringers IV solution New Bag 03/05/2019 9:32 AM CDT IV, at 25 mL/hr, Continuous, Starting Mon03/05/19 at 0710, Until Mon03/05/19 at 0959, 1,000 mL, Pre - Op New Bag/Tubing 03/05/2019 6:47 AM CDT 25 mL/hr lactated ringers IV solution New Bag 03/05/2019 11:23 AM CDT 125 mL/hr IV, at 125 mL/hr, Continuous, Starting Mon03/05/19 at 0915, Until Mon03/05/19 at 1457, 1,000 mL, PACU, TKO current fluids if patient is going to Day Unit / ARU and tolerating PO fluids without nausea., Already Infusing 03/05/2019 9:59 AM CDT 125 mL/hr lidocaine 2%-EPINEPHrine 1:200,000 5 mL in Given 03/05/2019 7:45 AM CDT ropivacaine 0.5 % 75 mg Peripheral Nerve Block Injection Syringe Perineural, Now, 1 dose, 03/05/19 at 0740, 20 mL, Pre - Op, Inject 5-10 mL per administration as directed by Anesthesia with a total maximum of 40 mL, midazolam (VERSED) injection solution 0.25-2 Given 03/05/2019 7:45 AM CDT 2 mg mg 0.25-2 mg, IV, Every five minutes prn, 6 doses, Starting Mon03/05/19 at 0736, Until Mon03/05/19 at 0959, sedation, 2 mL, Pre - Op, Midazolam 0.25-2 mg q 5 min prn to a MAX of 5 mg as needed for sedation during procedure., traMADol (ULTRAM) tablet 100 mg Given 03/05/2019 6:34 AM CDT 100 mg 100 mg, Oral, Pre-op, 1 dose, Mon03/05/19 at 0605, Pre - Op, Recommended maximum daily dose of vgmlromn=583 mg. Recommended maximum daily dose in patients 75 years or dtarm=816 mg., documented in this encounter
== END 2019-03-07 08:45 | disposition home or self-care (01) ==
LOC: CC.ED 05:14
DX: G89.18 Other acute postprocedural pain (principal); M25.561 Pain in right knee; I10 Essential (primary) hypertension; J45.909 Unspecified asthma, uncomplicated; E66.9 Obesity, unspecified; Z96.651 Presence of right artificial knee joint; Z88.6 Allergy status to analgesic agent; Z88.1 Allergy status to other antibiotic agents; Z88.8 Allergy status to other drugs, medicaments and biological substances; Z91.018 Allergy to other foods; Z91.048 Other nonmedicinal substance allergy status; Z79.82 Long term (current) use of aspirin; Z79.899 Other long term (current) drug therapy; Z79.51 Long term (current) use of inhaled steroids; Z68.39 Body mass index [BMI] 39.0-39.9, adult
CPT/HCPCS: 96374; 96375; 99283-25; A9270-GY; J1885; J2405